=== PATIENT | female | born 1940 | race Caucasian/White ===

== ENCOUNTER 2019-07-27 19:44 | Emergency (ER) | payer MEDICARE, OTHER ==
[~2019-07-27] VITALS: Ht 144.8 cm; Wt 69.0 kg
[2019-07-27] MEDS ORDERED: TIZANIDINE HCL2 MG PO (21:27)
[2019-07-27] MEDS ORDERED: DONEPEZIL HCL5 M1 PO (21:28)
[2019-07-27] MEDS ORDERED: LOSA50 PO (21:28)
[2019-07-27] MEDS ORDERED: SERT25 PO (21:29)
[2019-07-27] MEDS ORDERED: Calcium Acetat667 MG PO (21:29)
[2019-07-27 23:30] LABS: Calcium, Ionized (POC) 1.08 mmol/L (1.10-1.46); Chloride (POC) 101 mmol/L (98-108); Creatinine (POC) 4.1 mg/dL (0.6-1.0); Glucose (ISTAT POC) 77 mg/dL (70-99); Hemoglobin (POC) 10.2 g/dL (12.0-16.0); Potassium (POC) 3.6 mmol/L (3.5-5.5); Sodium (POC) 138 mmol/L (135-148); Total CO2 (POC) 27 mmol/L (21-32)
== END 2019-07-28 02:50 | disposition home or self-care (01) ==
LOC: ER 19:44
PROVIDERS: Emergency Medicine
DX: I97.630 Postprocedural hematoma of a circulatory system organ or structure following a cardiac catheterization (principal); Z87.891 Personal history of nicotine dependence; Z79.899 Other long term (current) drug therapy
CPT/HCPCS: 70491; 80047; 85014; 99284-25; Q9967